=== PATIENT | female | born 1960 | race Caucasian/White ===

== ENCOUNTER → 2018-07-04 15:08 | Outpatient (CLI) | payer OTHER, SELFPAY ==
[2018-07-12 07:39] LABS: HPV Genotype 16, Aptima Negative (Negative)
[2018-07-12 11:23] LABS: HPV APTIMA, High Risk Positive (Negative); HPV Genotype 18,45 Aptima Negative (Negative)
== END ==
PROVIDERS: Visit Provider Obstetrics & Gynecology
DX: Z12.4 Encounter for screening for malignant neoplasm of cervix (principal)
CPT/HCPCS: 87624; 88175; G0145

== ENCOUNTER → 2019-09-16 | Outpatient (CLI) | payer OTHER, SELFPAY ==
[2019-09-23 20:55] LABS: HPV APTIMA, High Risk Negative (Negative)
== END | disposition home or self-care (01) ==
PROVIDERS: Visit Provider Obstetrics & Gynecology
DX: Z12.4 Encounter for screening for malignant neoplasm of cervix (principal)
CPT/HCPCS: 87624; 88175; G0145

== ENCOUNTER → 2019-11-28 | Outpatient (CLI) | payer OTHER, SELFPAY ==
[2019-12-02 14:48] LABS: HPV APTIMA, High Risk Negative (Negative)
== END | disposition home or self-care (01) ==
LOC: LABSPEC 13:08
PROVIDERS: Visit Provider Obstetrics & Gynecology
DX: R87.615 Unsatisfactory cytologic smear of cervix (principal)
CPT/HCPCS: 87624; 88175; G0145